=== PATIENT | female | born 1940 | race Caucasian/White ===

== ENCOUNTER 2017-12-26 10:11 | Emergency (ER) | payer MEDICARE, BC ==
[~2017-12-26 10:11] MED LIST: ATOR40TA24 PO; FOLI-68 PO; LEVO50TA86 PO; METH2.5T43 PO
[2017-12-26] MEDS ORDERED: ASPI-1471 PO (10:22)
[2017-12-26] MEDS ORDERED: DICYCLOMINE HCL 10 MG CAP PO ONE (10:40)
[2017-12-26] MEDS ORDERED: NS(*) 0.9% 500 ML BAG 500 ML IV ONE (10:40)
[2017-12-26] MEDS ORDERED: ONDANSETRON 4 MG/2 ML VIAL IVP ONE (10:40)
[2017-12-26 10:50] LABS: PLATELET COUNT, AUTOMATED 213 K/uL (150-450)
[2017-12-26] MEDS ORDERED: IOPAMIDOL 76% 75 ML INFUS BTL 75 ML ONE (10:56)
--- NOTE | 2017-12-26 11:22 | ER Report ---
History and Physical Time Seen By MD: 10:45 Hx. of Stated Complaint: diarrhea since Thursday, todfay noted bloody stools, decreased energy, cramping HPI/ROS CHIEF COMPLAINT: 2-3 days of watery diarrhea HISTORY OF PRESENT ILLNESS: Patient is a 77-year-old female who presents to the emergency department for evaluation of crampy abdominal pain nausea without vomiting and at least 8-10 watery diarrhea stools over the past 2 days. She states that this morning she had some bright red blood with the bowel movement she denies any bleeding in between episodes of diarrhea. She does not take any anticoagulants other than one 81 mg aspirin daily. She reports having prior total hysterectomy, history of appendectomy as a teenager and history of gallbladder removal. Patient denies any recent antibiotic use or travel history. REVIEW OF SYSTEMS: Constitutional: No fever, no chills. Eyes: No discharge. ENT: No sore throat. Cardiovascular: No chest pain, no palpitations. Respiratory: No cough, no shortness of breath. Gastrointestinal: ab cramping; 8 loose stools; blood this am Genitourinary: No hematuria. Musculoskeletal: No back pain. Skin: No rashes. Neurological: No headache. Allergies: Coded Allergies: meperidine (Verified Allergy, Severe, hives, 12/26/17) Latex, Natural Rubber (Verified Allergy, Intermediate, rash, 12/26/17) Home Meds Active Scripts Ondansetron Hcl (ZOFRAN) 4 Mg Tablet, 4 MG PO Q8H for Nausea, #15 TAB 0 Refills Prov:LEORA WALTON MD 12/26/17 Dicyclomine Hcl (DICYCLOMINE HCL) 10 Mg Capsule, 10 MG PO QID for diarrhea, #20 CAPSULE 0 Refills Prov:LEORA WALTON MD 12/26/17 Metronidazole (FLAGYL) 500 Mg Tablet, 500 MG PO BID for 7 Days, #14 TAB 0 Refills Prov:LEORA WALTON MD 12/26/17 Ciprofloxacin Hcl (CIPRO) 500 Mg Tablet, 500 MG PO BID for 7 Days, #14 TAB 0 Refills Prov:LEORA WALTON MD 12/26/17 Reported Medications Aspirin (ASPIR 81) 81 Mg Tablet.dr, 81 MG PO QDAY, TAB 12/26/17 Folic Acid (FOLIC ACID) 1 Mg Tablet, 2 TAB PO QDAY, TAB 12/02/17 Methotrexate Sodium (METHOTREXATE) 2.5 Mg Tablet, 5 TAB PO QWEEK 12/02/17 Atorvastatin Calcium (LIPITOR) 40 Mg Tablet, 1 TAB PO QDAY, TAB 12/02/17 Levothyroxine Sodium (LEVOTHYROXINE SODIUM) 50 Mcg Tablet, 1 TAB PO QDAY, TAB 12/02/17 Past Medical/Surgical History Past medical history for rheumatoid arthritis gets weekly methotrexate. History of hypothyroidism and hypercholesterolemia. Smoking Status: Never Smoker Exposure to Second Hand Smoke?: Yes (father, mostly pipe) Hx Substance Use Disorder: No Hx Alcohol Use: No Constitutional Vital Sign - Last 24 Hours 12/26/17 12/26/17 12/26/17 12/26/17 10:16 10:18 10:30 10:52 Temp 97.9 Pulse 97 Resp 20 B/P (MAP) 176/69 176/69 (104) 159/66 (97) 173/79 (110) Pulse Ox 95 O2 Delivery Room Air 12/26/17 12/26/17 12/26/17 12/26/17 11:00 11:11 11:41 11:46 Pulse 80 83 83 B/P (MAP) 159/78 (105) Pulse Ox 95 95 97 12/26/17 11:58 B/P (MAP) 163/77 (105) Intake and Output 12/26/17 12/26/17 12/27/17 15:00 23:00 07:00 Intake Total 500 ml Balance 500 ml Physical Exam General Appearance: The patient is alert, has no immediate need for airway protection and no signs of toxicity. Eyes: Pupils equal and round no pallor or injection. ENT, Mouth: Mucous membranes are moist. Respiratory: There are no retractions, lungs are clear to auscultation. Cardiovascular: Regular rate and rhythm. Gastrointestinal: Abdomen is soft and non tender, no masses, bowel sounds normal. Neurological: Awake alert Skin: Warm and dry, no rashes. Musculoskeletal: Neck is supple non tender. Extremities are nontender, nonswollen and have full range of motion. Medical Decision Making Data Points Result Diagram: 12/26/17 1027 12/26/17 1027 Laboratory Hematology Test 12/26/17 10:27 12/26/17 10:59 Red Blood Count 4.34 M/uL (4.17-5.56) Mean Corpuscular Volume 94.4 fL (80.0-96.0) Mean Corpuscular Hemoglobin 33.0 pg (26.0-33.0) Mean Corpuscular Hemoglobin Concent 35.0 g/dL (32.0-36.0) Red Cell Distribution Width 13.9 % (11.5-14.5) Mean Platelet Volume 8.2 fL (7.2-11.1) Neutrophils (%) (Auto) 71.2 % (39.4-72.5) Lymphocytes (%) (Auto) 19.0 % (17.6-49.6) Monocytes (%) (Auto) 8.6 % (4.1-12.4) Eosinophils (%) (Auto) 0.7 % (0.4-6.7) Basophils (%) (Auto) 0.5 % (0.3-1.4) Nucleated RBC Relative Count (auto) 0.1 /100WBC Neutrophils # (Auto) 4.5 K/uL (2.0-7.4) Lymphocytes # (Auto) 1.2 K/uL (1.3-3.6) Monocytes # (Auto) 0.5 K/uL (0.3-1.0) Eosinophils # (Auto) 0.0 K/uL (0.0-0.5) Basophils # (Auto) 0.0 K/uL (0.0-0.1) Nucleated RBC Absolute Count (auto) 0.00 K/uL Sodium Level 143 mmol/L (137-145) Potassium Level 3.7 mmol/L (3.5-5.0) Chloride Level 104 mmol/L (98-107) Carbon Dioxide Level 24 mmol/L (22-31) Blood Urea Nitrogen 9 mg/dl (7-18) Creatinine 0.60 mg/dl (0.52-1.04) Glomerular Filtration Rate Calc > 60.0 Random Glucose 105 mg/dl (75-110) Calcium Level 10.1 mg/dl (8.4-10.2) Total Bilirubin 0.6 mg/dl (0.2-1.3) Aspartate Amino Transf (AST/SGOT) 44 U/L (0-35) Alanine Aminotransferase (ALT/SGPT) 55 U/L (0-56) Alkaline Phosphatase 86 U/L (0-126) Total Protein 7.5 gm/dl (6.3-8.2) Albumin 4.3 g/dl (3.5-5.0) Lipase 88 U/L (23-300) Stool Leukocytes, Qualitative Positive Clostridium Difficile Toxin A & B Negative Clostridium difficile Antigen Negative Chemistry Test 12/26/17 10:27 12/26/17 10:59 White Blood Count 6.3 k/uL (4.5-11.0) Red Blood Count 4.34 M/uL (4.17-5.56) Hemoglobin 14.3 g/dL (12.0-16.0) Hematocrit 41.0 % (34.0-47.0) Mean Corpuscular Volume 94.4 fL (80.0-96.0) Mean Corpuscular Hemoglobin 33.0 pg (26.0-33.0) Mean Corpuscular Hemoglobin Concent 35.0 g/dL (32.0-36.0) Red Cell Distribution Width 13.9 % (11.5-14.5) Platelet Count 213 K/uL (150-450) Mean Platelet Volume 8.2 fL (7.2-11.1) Neutrophils (%) (Auto) 71.2 % (39.4-72.5) Lymphocytes (%) (Auto) 19.0 % (17.6-49.6) Monocytes (%) (Auto) 8.6 % (4.1-12.4) Eosinophils (%) (Auto) 0.7 % (0.4-6.7) Basophils (%) (Auto) 0.5 % (0.3-1.4) Nucleated RBC Relative Count (auto) 0.1 /100WBC Neutrophils # (Auto) 4.5 K/uL (2.0-7.4) Lymphocytes # (Auto) 1.2 K/uL (1.3-3.6) Monocytes # (Auto) 0.5 K/uL (0.3-1.0) Eosinophils # (Auto) 0.0 K/uL (0.0-0.5) Basophils # (Auto) 0.0 K/uL (0.0-0.1) Nucleated RBC Absolute Count (auto) 0.00 K/uL Glomerular Filtration Rate Calc > 60.0 Calcium Level 10.1 mg/dl (8.4-10.2) Total Bilirubin 0.6 mg/dl (0.2-1.3) Aspartate Amino Transf (AST/SGOT) 44 U/L (0-35) Alanine Aminotransferase (ALT/SGPT) 55 U/L (0-56) Alkaline Phosphatase 86 U/L (0-126) Total Protein 7.5 gm/dl (6.3-8.2) Albumin 4.3 g/dl (3.5-5.0) Lipase 88 U/L (23-300) Stool Leukocytes, Qualitative Positive Clostridium Difficile Toxin A & B Negative Clostridium difficile Antigen Negative EKG/Imaging Imaging [facility] PATIENT NAME: Manisha Washington : 1940 MR: [id number] V: [id number] EXAM DATE: ORDERING PHYSICIAN: LEORA WALTON TECHNOLOGIST: Location: [facility] - [place] Patient: Manisha Washington : 1940 Visit/Account:[id number] Date of Sevice: 12/26/2017 CT abdomen and pelvis with IV contrast Indication: Bloody diarrhea. Comparison: None available. . Technique: Axial CT images were obtained through the abdomen and pelvis during injection of nonionic iodinated intravenous contrast. Reformatted coronal and sagittal images were also obtained. One of the following dose optimization techniques was utilized in the performance of this exam: Automated exposure control; adjustment of the mA and/ or kV according to the patient's size; or use of an iterative reconstruction technique. Specific details can be referenced in the facility's radiology CT exam operational policy. Contrast: 75 ml of Isovue-370 IV contrast. Findings: Lower lung martin: Mild dependent atelectasis and scarring. Liver: No focal parenchymal abnormality of the liver. Biliary: Status post cholecystectomy. The common bile duct is dilated up to 1.3 cm without intraductal abnormality. At the pancreatic head the common bile duct and pancreatic duct is mildly dilated and appears similar without focal abnormality seen. Pancreas: The proximal pancreatic duct does measure up to 8 mm without intraductal abnormality. There is no discrete focal abnormality to the pancreatic head. The distal pancreatic duct appears normal. The pancreas shows no discrete focal abnormality. Spleen: Normal appearance. Adrenal glands: Unremarkable. Kidneys / retroperitoneum: No evidence of nephrolithiasis or hydronephrosis. The left kidney does show a 1.6 cm cyst. No other discrete renal lesions. Bowel / peritoneum / mesenteries: The colon there is mainly decompressed. However there does appear to be mild wall thickening of the descending and transverse colon with mild similar finding to the ascending colon. The signal colon shows no focal abnormality. There is no discrete focal colonic lesions or significant inflammatory changes. The appendix is not definitely visualized. The small bowel shows no focal abnormality or obstruction. The stomach is decompressed and grossly normal. No free air, free fluid, fluid collections or areas of inflammation. Small umbilical hernia containing fat. Lymph node assessment: No pathologic adenopathy identified. Pelvic structures: The uterus is not visualized may been surgically removed. The remaining pelvic structures visualized within normal limits. Vessels: Mild atherosclerotic calcifications seen throughout a nonaneurysmal abdominal aorta and branches. Musculoskeletal / Body wall: No acute or aggressive osseous abnormality. Mild degenerative changes of the spine. IMPRESSION: 1. There is mild diffuse wall thickening of the colon almost in its entirety. Portions of the colon is decompressed. There is no significant inflammatory changes or focal lesion. The wall thickening may be secondary to early colitis. 2. Dilatation the common bile duct and pancreatic duct. A stone is not identified. There is no discrete focal abnormality of the head of the pancreas. Consideration to follow-up nonemergent MRI of the pancreas, without and with contrast, for further evaluation. 3. Other chronic findings as above. Report Dictated By: Suleman Hutchins at 12/26/2017 11:37 AM Report E-Signed By: Suleman Hutchins at 12/26/2017 11:46 AM WSN:[id number] ED Course/Re-evaluation Clinical Indication for ER IV: Hydration, IV Access ED Course 12/26/2017 11:20:32 am patient with 2-3 days of watery diarrhea now with blood. Differential diagnosis includes but is not limited to small bowel obstruction, diverticulitis, colitis, gastroenteritis. Plan at this time will be abdominal labs we will also perform a CT of the abdomen and pelvis with IV contrast. We will give IV fluid bolus of 500 ML's of normal saline. We will also give Bentyl for abdominal cramping and Zofran for nausea. Decision to Disposition Date: December 26, 2017 Decision to Disposition Time: 12:01 Depart Departure Latest Vital Signs Vital Signs Date Time Temp Pulse Resp B/P (MAP) Pulse Ox O2 Delivery O2 Flow Rate FiO2 12/26/17 11:58 163/77 (105) 12/26/17 11:46 83 97 12/26/17 10:16 97.9 20 Room Air Impression: Primary Impression: Colitis Condition: Improved Disposition: HOME OR SELF-CARE Referrals: INES WINTERS MD (PCP) 2 Days if symptoms persist New Scripts Ondansetron Hcl (ZOFRAN) 4 Mg Tablet 4 MG PO Q8H for Nausea, #15 TAB 0 Refills Prov: LEORA WALTON MD 12/26/17 Dicyclomine Hcl (DICYCLOMINE HCL) 10 Mg Capsule 10 MG PO QID for diarrhea, #20 CAPSULE 0 Refills Prov: LEORA WALTON MD 12/26/17 Metronidazole (FLAGYL) 500 Mg Tablet 500 MG PO BID for 7 Days, #14 TAB 0 Refills Prov: LEORA WALTON MD 12/26/17 Ciprofloxacin Hcl (CIPRO) 500 Mg Tablet 500 MG PO BID for 7 Days, #14 TAB 0 Refills Prov: LEORA WALTON MD 12/26/17 Patient Instructions: Infectious Colitis (GEN) Additional Instructions: Take all your antibiotics as directed and until the prescription is complete. Continue all your regular outpatient medications. If your symptoms do not improve within 48-72 hours you should follow up with your primary care provider. If at any time if symptoms worsen, you should return to the emergency department for further evaluation. Your CT scan showed an incidental finding of a dilated common bile duct. Your liver function testing and pancreatic enzymes were normal. It is recommended that you schedule a follow-up appointment with your primary care provider to have a non-emergent MRI of the abdomen and pelvis performed to better identify this CT finding LEORA WALTON MD December 26, 2017 11:22
--- NOTE | 2017-12-26 11:51 | RADIOLOGY IMAGING REPORT ---
FACILITY: [facility] - [place] PATIENT NAME: Manisha Washington : 1940 MR: [id number] V: [id number] EXAM DATE: ORDERING PHYSICIAN: LEORA WALTON TECHNOLOGIST: Location: [facility] Patient: Manisha Washington : 1940 Visit/Account:[id number] Date of Sevice: 12/26/2017 CT abdomen and pelvis with IV contrast Indication: Bloody diarrhea. Comparison: None available. . Technique: Axial CT images were obtained through the abdomen and pelvis during injection of nonioni c iodinated intravenous contrast. Reformatted coronal and sagittal images were also obtained. One of the following dose optimization techniques was utilized in the performance of this exam: Autom ated exposure control; adjustment of the mA and/or kV according to the patient's size; or use of an i terative reconstruction technique. Specific details can be referenced in the facility's radiology C T exam operational policy. Contrast: 75 ml of Isovue-370 IV contrast. Findings: Lower lung martin: Mild dependent atelectasis and scarring. Liver: No focal parenchymal abnormality of the liver. Biliary: Status post cholecystectomy. The common bile duct is dilated up to 1.3 cm without intraducta l abnormality. At the pancreatic head the common bile duct and pancreatic duct is mildly dilated and appears similar without focal abnormality seen. Pancreas: The proximal pancreatic duct does measure up to 8 mm without intraductal abnormality. There is no discrete focal abnormality to the pancreatic head. The distal pancreatic duct appears normal. The pancreas shows no discrete focal abnormality. Spleen: Normal appearance. Adrenal glands: Unremarkable. Kidneys / retroperitoneum: No evidence of nephrolithiasis or hydronephrosis. The left kidney does guzman w a 1.6 cm cyst. No other discrete renal lesions. Bowel / peritoneum / mesenteries: The colon there is mainly decompressed. However there does appear t o be mild wall thickening of the descending and transverse colon with mild similar finding to the asc ending colon. The signal colon shows no focal abnormality. There is no discrete focal colonic lesions or significant inflammatory changes. The appendix is not definitely visualized. The small bowel show s no focal abnormality or obstruction. The stomach is decompressed and grossly normal. No free air, free fluid, fluid collections or areas of inflammation. Small umbilical hernia containin g fat. Lymph node assessment: No pathologic adenopathy identified. Pelvic structures: The uterus is not visualized may been surgically removed. The remaining pelvic structures visualized within normal limits. Vessels: Mild atherosclerotic calcifications seen throughout a nonaneurysmal abdominal aorta and bran ches. Musculoskeletal / Body wall: No acute or aggressive osseous abnormality. Mild degenerative changes of the spine. IMPRESSION: 1. There is mild diffuse wall thickening of the colon almost in its entirety. Portions of the colon i s decompressed. There is no significant inflammatory changes or focal lesion. The wall thickening may be secondary to early colitis. 2. Dilatation the common bile duct and pancreatic duct. A stone is not identified. There is no discre te focal abnormality of the head of the pancreas. Consideration to follow-up nonemergent MRI of the p ancreas, without and with contrast, for further evaluation. 3. Other chronic findings as above. Report Dictated By: Suleman Hutchins at 12/26/2017 11:37 AM Report E-Signed By: Suleman Hutchins at 12/26/2017 11:46 AM WSN:[id number]
[2017-12-26 11:58] VITALS: BP 163/77
[2017-12-26] MEDS ORDERED: METR-1 PO (12:04)
[2017-12-26] MEDS ORDERED: DICY10CA11 PO (12:04)
[2017-12-26] MEDS ORDERED: CIPR-344 PO (12:04)
[2017-12-26] MEDS ORDERED: ONDA4TAB97 PO (12:04)
== END 2017-12-26 12:15 | disposition home or self-care (01) ==
LOC: ER 10:22
DX: K52.9 Noninfective gastroenteritis and colitis, unspecified (principal)
CPT/HCPCS: 74177; 83630; 83690; 85025; 87045; 87324; 87449; 96361; 96374; 99284; A9270; J2405; J7040; Q9967; 82040; 82247; 82310; 82374; 82435; 82565; 82947; 84075; 84132; 84155; 84295; 84450; 84460; 84520

== ENCOUNTER → 2018-02-09 | Outpatient (CLI) | payer MEDICARE, BC ==
[~2018-02-09] MED LIST changes: +ASPI-1471 PO; +CIPR-344 PO; +DICY10CA11 PO; +METR-1 PO; +ONDA4TAB97 PO
--- NOTE | 2018-02-09 18:12 | RADIOLOGY IMAGING REPORT ---
FACILITY: [facility] PATIENT NAME: OLINDA MORA : [id number] MR: [id number] V: [id number] EXAM DATE: [id number] ORDERING PHYSICIAN: INES WINTERS TECHNOLOGIST: Millie Onofre PROCEDURE:BILATERAL DIGITAL SCREENING MAMMOGRAM WITH CAD ASSISTED INTERPRETATION & 3D TOMOSYNTHESIS COMPARISON:Prior mammograms 01/27/17 back to 11/18/11. INDICATIONS:screening FINDINGS: The breast parenchyma is moderately dense. In the Right MLO view in the superior Right breast located 5cm from nipple there is a 5mm irregular shaped nodularity which is stable and unchanged as far back as 2011. The Left breast parenchyma is unremarkable. There are no developing masses or recent microcalcifications. DIAGNOSTIC CATEGORY 2--BENIGN FINDING. RECOMMENDATIONS: ROUTINE MAMMOGRAM AND CLINICAL EVALUATION. IMPRESSION: BIRADS 2: Benign finding. Routine mammographic screening. Dictated by: Jacobo Kinney M.D. on 02/09/2018 at 11:20 Transcribed by: GORDON on 02/09/2018 at 11:34 Approved by: Jacobo Kinney M.D. on 02/09/2018 at 18:11 [facility]
--- NOTE | 2018-02-09 18:12 | RADIOLOGY IMAGING REPORT ---
FACILITY: PATIENT NAME: Manisha Washington : 1940 MR: [id number] V: [id number] EXAM DATE: ORDERING PHYSICIAN: INES WINTERS TECHNOLOGIST: Location: [facility] [place] Patient: Manisha Washington : 1940 Visit/Account:[id number] Date of Sevice: 02/09/2018 DEXA Scan Clinical history: Screening. Comparison: 02/27/2010. LUMBAR SPINE: The bone mineral density (BMD) measured from L1-L4 correlates with a Z-score of 0.8 and a T-score of -1.0 which is borderline osteopenic as defined by the World Health Organization . The corresponding risk of fracture in the lumbar spine is moderately increased compared with a you adult reference population. This value has decreased by 1.9 % since the prior study. More than 5 % change is considered significant. HIP: Bone mineral density (BMD) measured in the Left Total Hip region correlates with a Z-score of 0.5 and a T-score of -1.3. The T-score of the femoral neck is -1.2. The lower of the two T-scores is osteopenic as defined by the World Health Organization. The corresponding risk of fracture in the hip is increased approximately twofold compared with a yo jennifer adult reference population. This value has decreased by 11.3 % since the prior study. More than 5% change is considered significant. Bone mineral density (BMD) measured in the Left Femoral Neck region measures 0.867 g/cm?. IMPRESSION: 1. Lumbar spine: Borderline osteopenic. There has been no significant change in the bone mineral d ensity since the previous exam. 2. Left Total Hip: Osteopenic. There has been significant decrease in the bone mineral density sinc e the previous exam. The next DEXA scan of this patient should include the following sites: L1-L4 and Left hip. FRAX? WHO Fracture Risk Assessment Tool link: <http://www.shef.ac.uk/FRAX/tool.jsp?[email or web address]> PLEASE NOTE: 1) The World Health Organization defines low BMD as follows: T-score Normal > -1 Osteopenia < -1 and > -2.5 Osteoporosis < -2.5 without fractures Established osteoporosis < -2.5 with fractures 2) In general, you may wish to consider: Diagnosis Treatment Follow-up DEXA Normal BMD Prevention 2-3 years Osteopenia Prevention/therapy 1-2 years Osteoporosis Therapy Yearly 3) Fracture risk estimated from the T-score is more accurate for vertebral fractures (often spontane ous) than for hip fractures. Report Dictated By: Jacobo Kinney MD at 02/09/2018 6:05 PM Report E-Signed By: Jacobo Kinney MD at 02/09/2018 6:08 PM WSN:[email or web address]
== END ==
LOC: MAMO 01:24
PROVIDERS: ATTEND Internal Medicine
DX: Z13.820 Encounter for screening for osteoporosis (principal); Z12.31 Encounter for screening mammogram for malignant neoplasm of breast; Z78.0 Asymptomatic menopausal state; M85.88 Other specified disorders of bone density and structure, other site
CPT/HCPCS: 77063; 77067; 77080

== ENCOUNTER → 2018-12-29 | Outpatient (CLI) | payer BC, MEDICARE ==
[~2018-12-29] MED LIST changes: +GLUC1TAB78 PO; +LEVO75TA73 PO; +MULT1TAB64 PO; +OMEG-11 PO; +TURM500C4 PO
--- NOTE | 2018-12-29 10:20 | RADIOLOGY IMAGING REPORT ---
FACILITY: [facility] - [place] PATIENT NAME: Manisha Washington : 1940 MR: [id number] V: [id number] EXAM DATE: ORDERING PHYSICIAN: TANIA APARICIO TECHNOLOGIST: [place] [facility] [place]: Manisha Washington : 1940 Visit/Account:[id number] Date of Sevice: 12/29/2018 Carotid artery Doppler duplex ultrasound scan. HISTORY: Bruit. COMPARISON: None. A color flow Doppler duplex ultrasound scan with spectral analysis was performed on the carotid and v ertebral arteries bilaterally. Measurement of carotid stenosis is based on velocity parameters that correlate the residual internal carotid diameter with [place] Symptomatic Carotid Endarterecto my Trial (NASCET)- based stenosis levels. Right carotid peak systolic velocities are as follows: Superior right ICA - 114 cm/sec. Mid right ICA - 103 cm/sec. Proximal right ICA - 79 cm/sec. Right carotid bulb - 67 cm/sec. Superior right CCA - 64 cm/sec. Mid right CCA- 75 cm/sec. Inferior right CCA- 86 cm/sec. Proximal right ECA- 93 cm/sec. Mid right vertebral- 64 cm/sec. Right ICA/CCA ratio- 1.5 ( normal < 1.5 ). Antegrade right vertebral artery flow- YES. Left carotid peak systolic velocities are as follows: Superior left ICA - 109 cm/sec. Mid left ICA- 87 cm/sec. Proximal left ICA- 73 cm/sec. Left carotid bulb- 84 cm/sec. Superior left CCA- 75 cm/sec. Mid left CCA- 77 cm/sec. Inferior left CCA- 86 cm/sec. Proximal left ECA- 84 cm/sec. Mid left vertebral- not visualized. Left ICA/CCA ratio- 1.4 ( normal < 1.5). Antegrade left vertebral artery flow- YES. The left vertebral artery is not visualized. IMPRESSION: Nonvisualization of the left vertebral artery. Otherwise negative for hemodynamically significant carotid stenosis. Report Dictated By: Jonathon Rios MD at 12/29/2018 10:12 AM Report E-Signed By: Jonathon Rios MD at 12/29/2018 10:16 AM WSN:[id number]
== END ==
LOC: US 00:33
PROVIDERS: ATTEND Emergency Medicine
DX: R09.89 Other specified symptoms and signs involving the circulatory and respiratory systems (principal)
CPT/HCPCS: 93880

== ENCOUNTER → 2018-12-31 | Outpatient (CLI) | payer MEDICARE ==
[2018-12-31 08:11] LABS: PLATELET COUNT, AUTOMATED 227 K/uL (150-450)
[2018-12-31 09:12] LABS: LDL CHOLESTEROL 80 mg/dl
== END ==
LOC: LAB 07:38
PROVIDERS: ATTEND Emergency Medicine
DX: E03.9 Hypothyroidism, unspecified (principal); E78.00 Pure hypercholesterolemia, unspecified
CPT/HCPCS: 36415; 82040; 82247; 82310; 82374; 82435; 82465; 82565; 82947; 83718; 84075; 84132; 84155; 84295; 84443; 84450; 84460; 84478; 84520; 85025